=== PATIENT | male | born 1950 | race Caucasian/White ===

== ENCOUNTER 2023-04-19 11:58 | Outpatient (CLI) | payer OTHER, SELFPAY ==
[2023-04-19 13:00] LABS: Uric Acid 11.4 mg/dL (3.5-8.5)
== END 2023-04-19 11:59 | disposition home or self-care (01) ==
LOC: ANHLAB 12:02
PROVIDERS: PCP Family Medicine; Visit Provider Family Medicine
DX: M79.672 Pain in left foot (principal); Z79.4 Long term (current) use of insulin; E11.9 Type 2 diabetes mellitus without complications
CPT/HCPCS: 36415; 83036; 84550